=== PATIENT | male | born 1955 | race Caucasian/White ===

== ENCOUNTER → 2022-01-04 | Outpatient (CLI) | payer OTHER ==
[~2022-01-04] MED LIST: LEXAPRO20 MG PO; NORVASC10 MG PO; PLAVIX 75 MG TA75 MG PO; PRAVASTATIN SOD10 MG PO; ZESTRIL40 MG PO
== END ==
LOC: ECHO 12:31
DX: I25.10 Atherosclerotic heart disease of native coronary artery without angina pectoris (principal); R06.02 Shortness of breath; I37.1 Nonrheumatic pulmonary valve insufficiency
CPT/HCPCS: ECHO; 93306